=== PATIENT | male | born 1970 | race Caucasian/White ===

== ENCOUNTER 2018-11-14 18:15 | Emergency (ER) | payer MEDICARE, MEDICAID ==
[~2018-11-14] VITALS: Ht 177.8 cm; Wt 77.0 kg
[2018-11-14] MEDS ORDERED: QUET400T11 PO (20:07)
[2018-11-14] MEDS ORDERED: GEMF600T5 PO (20:07)
[2018-11-14] MEDS ORDERED: BENZ1TAB7 MT (20:07)
[2018-11-14] MEDS ORDERED: ICOS1CAP PO (20:07)
[2018-11-14] MEDS ORDERED: HAL5 MT (20:07)
[2018-11-14] MEDS ORDERED: METO25TA6 MT (20:07)
[2018-11-14] MEDS ORDERED: LACT10SO7 PO (20:07)
[2018-11-14 20:37] VITALS: BP 116/71
== END 2018-11-15 00:29 | disposition home or self-care (01) ==
LOC: ER 18:15
DX: R45.1 Restlessness and agitation (principal); R06.4 Hyperventilation; F79 Unspecified intellectual disabilities; Z79.899 Other long term (current) drug therapy
CPT/HCPCS: 93005; 99284